=== PATIENT | male | born 1965 | race Two or more races ===

== ENCOUNTER 2025-05-07 18:02 | Emergency (ER) | payer MEDICAID ==
[~2025-05-07] VITALS: Ht 180.3 cm; Wt 76.0 kg
--- NOTE | 2025-05-07 18:21 | ED.PDOC ---
History of Present Illness(SKN HPI Comments BITE BY DOG 3 WEEKS AGO ON RIGHT THIGH DID NOT GET SEEN RIGHT AWAY, SEEN AT A FEW DAYS AND TOLD HE HAD FRACTURE, FULL LEFT LEG PLACED IN SOFT SPLINT, BLEEDING PRESENT TO [place] WRAP ON LEG, TOLD TO GO TO ER BY PRIMARY MD TO GET MRI AND SEE IF LEG IS FRACTURE. DENIES NUMNESS, WEAKNESS, FEVER, CHILLS, DRAINAGE, AND N/V, Chief Complaint: Animal Bite Time Seen by MD: 18:17 History of Present Illness: Nurses Notes, Medications, Allergies Information Source: Patient Past Medical History PAST MEDICAL HISTORY: Denies Surgical History: Denies all surgeries Family History Family History: Reviewed,noncontributory to illness Social History Smoker: Non-Smoker Alcohol: Denies ETOH Use Drugs: Denies Drug Use Constitutional: denies: chills, diaphoresis, fatigue, fever, malaise, sweats, weakness, others EENTM: denies: blurred vision, double vision, ear bleeding, ear discharge, ear drainage, ear pain, ear ringing, eye pain, eye redness, hearing loss, mouth pain, mouth swelling, nasal discharge, nose bleeding, nose congestion, nose p ain, photophobia, tearing, throat pain, throat swelling, voice changes, others Respiratory: denies: cough, hemoptysis, orthopnea, SOB at rest, shortness of breath, SOB with excertion, stridor, wheezing, others Cardiovascular: denies: chest pain, dizzy spells, diaphoresis, Dyspnea on exertion, edema, irregular heart beat, left arm pain, lightheadedness, palpitations, PND, syncope, others Gastrointestinal: denies: abdomen distended, abdominal pain, blood streaked bowels, constipated, diarrhea, dysphagia, difficulty swallowing, hematemesis, melena, nausea, poor appetite, poor fluid intake, rectal bleeding, rectal pain, vomiting, others Genitourinary: denies: burning, dysuria, flank pain, frequency, hematuria, incontinence, penile discharge, penile sore, pain, testicle pain, testicle swelling, urgency, others Neurological: denies: dizziness, fainting, headache, left sided numbness, left sided weakness, numbness, paresthesia, pre-existing deficit, right sided numbness, right sided weakness, seizure, speech problems, tingling, tremors, weakness, others Musculoskeletal: reports: others (RIGHT LEG PAIN); denies: back pain, gout, joint pain, joint swelling, muscle pain, muscle stiffness, neck pain Integumetry: reports: wounds; denies: bruises, change in color, change in hair/nails, dryness, laceration, lesions, lumps, rash, others Allergic/Immunocompromised: denies: Difficulty Healing, Frequent Infections, Hives, Itching, others Hematologic/Lymphatic: denies: anemia, blood clots, easy bleeding, easy bruising, swollen glands, others Endocrine: denies: excessive hunger, excessive sweating, excessive thirst, excessive urination, flushing, intolerance to cold, intolerance to heat, unexplained weight gain, unexplained weight loss, others Psychiatric: denies: anxiety, bipolar disorder, depression, hopeless, panic disorder, schizophrenia, sleepless, suicidal, others Physical Exam General Appearance: No Apparent Distress, Normal HEENT: Pharynx Normal, TMs Normal Neck: Full Range of Motion, Non-Tender Respiratory: Lungs Clear, No Respiratory Distress, Normal Breath Sounds Cardiovascular: No Murmur, Normal Peripheral Pulses, Regular Rate/Rhythm Breast Exam: Deferred Gastrointestinal: Non Tender, Soft Genitalia: Deferred Pelvic: Deferred Rectal: Deferred Extremities: Normal capillary refill, Normal inspection, Normal range of motion, Non-tender, No pedal edema Musculoskeletal : Apperance: Normal Neurologic: Alert, No Motor Deficits, Normal Affect, Normal Mood, No Sensory Deficits Cerebellar Function: Normal Reflexes: Normal Skin: Dry, Normal Color, Warm, Wounds (RIGHT ANTERIOR THIGH NOTED PUNCTURE WOUND WITH CLEAR DRAINAGE NO SURROUNDING ERYTHEMA NO STREAKING TRACE EDEMA. +CSM) Lymphatic: No Adenopathy Was a procedure done? Was a procedure done?: No Differential Diagnosis (INTG) Differential Diagnosis: Cellulitis, Hematoma, Puncture Wound Differential Diagnosis: Fracture X-Ray, Labs, Meds, VS Vital Signs Date Time Temp Pulse Resp B/P (MAP) Pulse Ox O2 Delivery O2 Flow Rate FiO2 05/07/25 18:22 99.1 100 18 108/71 (83) 98 99.1 X-Ray, Labs, Meds, VS Comment CT OF RIGHT FEMUR SHOWS MID SHAFT OLD HEALING FRACTURE. LIKELY SECONDARY TO RECENT INJURY 2 WEEKS AGO FALL AFTER BEING BIT BY THE DOG. PATIENT PLACED IN POSTERIOR LONG LEG SPLINT CRUTCHES PROVIDED. WOUND CLEANSED DRESSING CHANGED. ADVISED PATIENT TO CONTINUE THE ANTIBIOTICS HE IS ON FOLLOW DOSING INSTRUCTIONS AND COMPLETE ENTIRE PRESCRIPTION. ADVISED TO FOLLOW UP WITH HIS PCP IN 2 DAYS FOR RE-EVALUATION OF THE WOUND URGENT CARE OR BACK HERE IN THE ER. ER RETURN PRECAUTIONS GIVEN PATIENT INDICATES UNDERSTANDING AND AGREES WITH DISCHARGE PLAN OF CARE. Time of 1ST Reevaluation: 18:20 Reevaluation 1ST: Unchanged Time of 2ND Reevaluation: 21:41 Reevaluation 2ND: Improved Patient Education/Counseling: Diagnosis, Treatment, Prognosis, Need For Follow Up Family Education/Counseling: Diagnosis, Treatment, Prognosis, Need For Follow Up SEPSIS Sepsis Screen Physician Orders Lower Extremity Non Joint Righ (05/07/25 18:23) Splints (05/07/25 ) Crutches And Crutch Training (05/07/25 21:21) Vital Signs Date Time Temp Pulse Resp B/P (MAP) Pulse Ox O2 Delivery O2 Flow Rate FiO2 05/07/25 18:22 99.1 100 18 108/71 (83) 98 99.1 Departure 1 Departure Time of Disposition: 21:40 Impression: Primary Impression: Femur fracture, right Qualified Codes: S72.91XA - Unspecified fracture of right femur, initial encounter for closed fracture Additional Impression: Dog bite of right thigh without complication Qualified Codes: S71.151A - Open bite, right thigh, initial encounter; W54.0XXA - Bitten by dog, initial encounter Disposition: 01 HOME / SELF CARE / HOMELESS Condition: Stable Discharged With: Other (daughter) Critical Care Note Critical Care Time?: No Stability Stability form required: MINNA Vieira May 07, 2025 18:21
[2025-05-07 18:22] VITALS: BP 108/71; PULSE 100; RESP 18; TEMP 99.1; O2SAT 98
--- NOTE | 2025-05-07 19:33 | DVH ---
INDICATION: pain/fall COMPARISON: None TECHNIQUE: CT of the rightleft 0.62 was performed without contrast. Volume transverse images were o btained and reconstructed in multiple planes using bone and soft tissue algorithms. Radiation Dose Information: CT Dose: CTDI volume is 9.15 mGy. Dose-length product is 906.37 mGy*cm FINDINGS: There is medullary cylindrical lucency spanning the entirety of the right femur. There is cortical th ickening with periosteal reaction most notable within the mid femur. No fracture or dislocation. Ghost track from prior screw within the proximal tibia.. There is a laceration- wound around the lateral aspect of the distal thigh. There is associated intra muscular edema within the subjacent anterior lateral compartment. Their soft tissue thickening. IMPRESSION: 1. Old mid- femur fracture with periosteal reaction and cortical thickening with ghost track of prior intramedullary dre. Correlate with patient's history. 2. Ghost track from prior hardware within the proximal femur. 3. No fracture or dislocation 4. Lateral distal thigh soft tissue wound 5. All CT scans at this medical facility are performed using dose modulation techniques as appropriat e to a performed exam including the following: Automated exposure control was utilized; Adjustment of the MA And/or KV according to patient size; And use of iterative reconstruction technique.
== END 2025-05-07 22:46 | disposition home or self-care (01) ==
LOC: ER 18:02
DX: S72.8X1A Other fracture of right femur, initial encounter for closed fracture (principal); W54.0XXA Bitten by dog, initial encounter; Y93.89 Activity, other specified; Y92.89 Other specified places as the place of occurrence of the external cause; Y99.8 Other external cause status
CPT/HCPCS: 29505; 29515; 73700